=== PATIENT | male | born 1975 | race Caucasian/White ===

== ENCOUNTER 2019-09-06 12:41 | Inpatient (IN) | payer MEDICAID, SELFPAY ==
[2019-09-06] VITALS (15 sets, daily range): BP systolic 119–155; BP diastolic 75–109; PULSE 45–83; RESP 10–21; TEMP 36.1–36.8; O2SAT 91–100; BMI 26.4
--- NOTE | ~2019-09-06 | US_ITS ---
EXAMINATION: US right upper quadrant EXAM DATE: 09/07/2019 12:53 INDICATION: Abdominal pain. Elevated liver function tests. TECHNIQUE: Multiple grayscale and Doppler images of the abdomen right upper quadrant were obtained (b y a technologist who performed the scan) and subsequently reviewed. There is no prior study for jaun salgado. FINDINGS: The pancreatic head and body are normal in appearance. The pancreatic tail is not visualized. Mildl y echogenic liver parenchyma, hepatic steatosis. There are no focal liver lesions identified. Ther e is no evidence of intrahepatic biliary duct dilation. Portal venous flow was seen in the hepatoped al, normal direction and has normal Doppler waveform. No right-sided hydronephrosis. Common bile duct measures 5 mm, which is normal. The gallbladder wall is normal in thickness, with ex pected amount of distention. No sonographic evidence of pericholecystic fluid. There is no cholelit hiases. Technologist performing exam reports patient did not demonstrate sonographic Mcgraw's sign. Please note that this sign is less reliable in patients who have received pain medication. IMPRESSION: 1. Hepatic steatosis. Reviewed, dictated and finalized at location B. IMPRESSION: 1. Hepatic steatosis.
--- NOTE | ~2019-09-06 | XR_ITS ---
EXAMINATION: XR chest 2V DATE: 09/07/2019 12:31 INDICATION: Left lung nodule. TECHNIQUE: Frontal and lateral views of the chest were obtained on 3 radiographs with nipple markers. COMPARISON: Chest 2 views 09/06/2019 FINDINGS: The nodule described in the left lower lung zone on the prior radiograph correlates with th e nipple. There is no pneumonia, pleural effusion, or pneumothorax. The heart size is normal. IMPRESSION: 1. No acute cardiopulmonary disease. Reviewed, dictated and finalized at location A.
--- NOTE | ~2019-09-06 | XR_ITS ---
XR chest 2V DATE: 09/06/2019 14:20 INDICATION: Shortness of breath, cough, fever, chest pain TECHNIQUE: PA and lateral views COMPARISON: 01/08/2019 portable AP chest FINDINGS: Approximately 6 mm nodular density overlying left lower lateral lung field; recommend repea t examination with nipple markers. No pulmonary infiltrate or consolidation, pleural effusion or pulmonary vascular congestion or pneumo thorax is detected. Normal heart size. No hilar or mediastinal enlargement. Minimal levoscoliosis of the thoracic spine. IMPRESSION: 6 mm nodular density overlying the lateral left lower lung; repeat PA chest with nipple m arkers is recommended. Reviewed, dictated and finalized at location B. IMPRESSION: 6 mm nodular density overlying the lateral left lower lung; repeat PA chest with nipple markers is recommended.
--- NOTE | 2019-09-06 12:54 | ED.GENADULT ---
HPI - General Adult General Chief complaint: Chest Pain Stated complaint: FEVER, BODY ACHES Time Seen by Provider: 09/06/19 12:51 Source: patient Mode of arrival: ambulatory Limitations: no limitations History of Present Illness HPI narrative: A 44 y/o male presents to the ED with c/o chest pain. Pt states that the CP started 4 days ago after he took ICE which is a type of crystal methamphetamine. He last used ICE on 09/03/19. Pt reports painful cough, fever, and sore throat. He states the fever was 103F on 09/05/19. Pt is a alcoholic and has been drinking 2 fifths for the last 8 months. He last drank EtOH 16 hours ago. Pt adds that his mom was diagnosed with Influenza recently. complaint: Chest pain Onset (ago): day(s) (4) Location: chest Pain Consistency: constant Associated symptoms: cough, fever/chills and other (Sore throat) Related Data Allergies Allergy/AdvReac Type Severity Reaction Status Date / Time ibuprofen Allergy Unknown Anaphylaxis Verified 09/06/19 13:48 Review of Systems Review of Systems: All systems reviewed & are unremarkable except as noted in HPI and below Constitutional: Constitutional: Reports fever(s) ENT: Reports sore throat Cardiovascular: Cardiovascular: Reports chest pain Respiratory: Respiratory: Reports cough PMFSH Past Medical History Medical History (Updated 09/06/19 @ 17:41 by Kash Kolb MD) Alcohol abuse Depression Surgical History Surgical History (Updated 09/06/19 @ 12:55 by Brooklyn Sarabia) No pertinent past surgical history Family History Family History Other Diabetes mellitus Family history of arthritis Family history of malignant neoplasm Hypertension Social History Social History (Updated 09/06/19 @ 13:30 by Brookyln Sarabia) Smoking status: Heavy tobacco smoker Alcohol intake: current Alcohol use details: 2 fifths per day Substance use: current Substance use type: methamphetamine Last use: ICE crystal methamphetamine Exam Const: General: healthy appearing, no acute distress and well developed Nutritional Appearance: well nourished Orientation/consciousness: patient oriented x3 (alert) and Other orientation findings (Alert) Limitations: no limitations HENMT: Head: normocephalic and atraumatic Ears: external ears normal General nose exam: No nasal discharge present and no epistaxis Face and sinus: face symmetric Mouth: Yes lip normal, Yes tongue normal and Yes moist mucous membranes Throat: other (No exudate, no erythema) Eyes: Conjunctivae: conjunctivae normal Sclera: sclerae normal EOM: EOMs intact bilaterally Neck: Neck: full ROM, no lymphadenopathy and supple Thyroid: thyroid normal Chest: Chest palpation & inspection: no tenderness Resp: Effort & Inspection: normal respiratory effort Auscultation: clear to auscultation bilaterally, no rales, no rhonchi, no wheezes and other (breath sounds equal) Cardio: Rate: regular rate Rhythm: regular rhythm Heart sounds: no gallops and no murmurs GI: Inspection: non-distended GI Palp: No abdominal tenderness and Yes Soft to palpation Auscultation: other (bowel sounds present) : General: Yes no CVA tenderness Back/Spine/Pelvis: Back: no CVA tenderness Thoracic/Lumbar Spine: thoracic and lumbar spine normal to inspection Skin: General skin exam: normal color and no rashes or lesions noted Neuro: General: patient oriented x3 (alert), moves all extremities and no focal motor deficits Cranial nerves: Yes facial symmetry Speech: normal speech Motor exam (neuro): Motor abnormalities not present Extrem: General: normal to inspection, full ROM and no pedal edema Psych: Affect: normal affect Course Course Emergency Course: cp w/u unremarkable but will need admit for etoh wd and hyponatremia Vital Signs Vital signs: Vital Signs Temperature 36.1 C L 09/06/19 12:55 Pulse Rate 74 09/06/19 12:55 Respiratory Rate 21 H
--- NOTE | 2019-09-06 13:31 | ECG_ITS ---
Measurements Intervals [place] Rate: 53 P: 57 AL: 169 QRS: 53 QRSD: 109 T: 56 QT: 473 QTc: 446 Interpretive Statements SINUS BRADYCARDIA ST ELEVATION IN ANT/INF LEADS- PROBABLY EARLY REPOLARIZATION BORDERLINE ECG Electronically Signed On 09-06-2019 13:49:13 CDT by Regan Alexandre D.O.
[2019-09-06] MEDS: PROCHLORPERAZINE EDISYLATE 10 MG/2 ML VIAL IV PUSH (13:39)
[2019-09-06] MEDS: LACTATED RINGERS 1,000 ML 999 ML IV CONT (13:39)
[2019-09-06] MEDS: FAMOTIDINE 20 MG/2 ML VIAL 40 MG IV PUSH (13:39)
[2019-09-06] MEDS: BELLADONNA ALK/PHENOB ELIX 10 ML, MAG HYDROX/ALUMINUM HYD/SIMETH 30 ML, LIDOCAINE HCL 2... PO (13:40)
[2019-09-06 13:48] LABS: Basophils Percent Auto 0.5 % (0.2-1.2); Eosinophils Percent Auto 0.2 % (0-4.4); Hematocrit 45.8 % (42.0-52.0); Hemoglobin 15.8 g/dL (14.0-18.0); Immature Granulocyte Absolute 0.03 K/mm3 (0.00-0.031); Immature Granulocyte Percent A 0.5 % (0-0.5); Immature Platelet Fraction Pct 6.8 % (0.9-11.2); Lymphocytes Absolute Auto 0.86 K/mm3 (0.9-3.2); Lymphocytes Percent Auto 14.5 % (18.3-44.2); Mean Corpuscular HGB Conc 34.5 g/dl (32-36); Mean Corpuscular Hemoglobin 31.6 pg (26-34); Mean Corpuscular Volume 91.6 fl (80-100); Mean Platelet Volume 10.5 fl (7.4-10.4); Monocytes Absolute Auto 0.3 K/mm3 (0.1-0.6); Monocytes Percent Auto 4.5 % (2.6-8.5); Neutrophils Absolute Auto 4.7 K/mm3 (1.3-6.7); Neutrophils Percent Auto 79.8 % (45.5-73.1); Platelet Count Result 126 k/mm3 (150-375); Red Cell Distribution Width 12.8 % (11.5-14.5); White Blood Count 5.9 K/mm3 (4.5-10.0)
[2019-09-06 13:57] LABS: Ethanol < 10 mg/dL (<10)
[2019-09-06 13:58] LABS: Alanine Aminotransferase 360 U/L (4-50); Albumin Level 4.4 g/dL (3.5-5.1); Alkaline Phosphatase 67 U/L (38-126); Bilirubin,Total 1.8 mg/dL (0.2-1.3); Blood Urea Nitrogen 11 mg/dL (9-20); Calcium 9.7 mg/dL (8.4-10.2); Carbon Dioxide 27 mmol/L (22-30); Chloride 95 mmol/L (98-107); Estimated CRCL calculation 125 ml/min; Estimated Glomerular Filt Rate > 60; Glucose 141 mg/dL (75-110); Lipase 79 U/L (23-300); Potassium 3.6 mmol/L (3.4-5.0); Sodium 129 mmol/L (137-145)
[2019-09-06 14:09] LABS: Troponin I < 0.012 ng/mL (0.000-0.034)
[2019-09-06 14:16] LABS: Aspartate Amino Transferase 850 U/L (17-59)
[2019-09-06] MEDS: SODIUM CHLORIDE 0.9% IV 1,000 ML 999 ML IV CONT (14:40)
[2019-09-06] MEDS: THIAMINE HCL 200 MG/2 ML VIAL 100 MG IV PUSH (14:40)
[2019-09-06 15:38] LABS: Amphetamine Screen Urine Negative (Negative); Barbiturate Screen Urine Negative (Negative); Benzodiazepines Screen Urine Negative (Negative); Cannabinoid Screen Urine Negative (Negative); Cocaine Screen Urine Negative (Negative); Methadone Screen Urine Negative (Negative); Opiate Screen Urine Negative (Negative); Phencyclidine Screen Urine Negative (Negative)
[2019-09-06 17:53] LABS: Troponin I < 0.012 ng/mL (0.000-0.034)
[2019-09-06] MEDS: CHLORDIAZEPOXIDE 25 MG CAPSULE PO (18:12)
--- NOTE | 2019-09-06 19:58 | PC.NURSE ---
This patient, Raul Martin, was admitted to IMU Room 205-01 on 09/06/19 at 1945. Patient/family oriented to hospital policies and general routines including ID bracelet, bed and alarms, visiting hours, pain management, procedures, bathroom and other care routines, personal items, smoking policy, room service/diet, and visiting hours. Valuables list has been completed. Information on how to activate the Rapid Response Team has been discussed. Patient/Family are encouraged to report perceived risks to care and to ask questions if they do not understand what they are told or what they should do.
[2019-09-06] MEDS: LACTATED RINGERS 1,000 ML 125 ML IV CONT (21:05)
[2019-09-06 21:59] LABS: Glucose Point of Care 181 (65-105)
[2019-09-06] MEDS: NICOTINE (*PBKC) 21 MG PATCH 1 PATCH TRANSDERM (23:08)
[2019-09-06] MEDS: CHLORDIAZEPOXIDE 25 MG CAPSULE 50 MG PO (23:09)
[2019-09-07] VITALS (16 sets, daily range): BP systolic 122–144; BP diastolic 73–94; PULSE 64–98; RESP 18–22; TEMP 36.4–36.8; O2SAT 94–98; BMI 26.4
[2019-09-07] MEDS: SODIUM CHLORIDE 0.9% IV 1,000 ML 999 ML IV CONT (01:34)
--- NOTE | 2019-09-07 01:39 | PM.IMHP ---
H&P: HPI History of Present Illness Chief complaint: Chest pain and shortness of breath Narrative: Date and time of patient contact: 09/06/2019 at 11:20 p.m. Raul Martin is a 44 year old male with a past medical history of depression and alcoholism who presented to the ER with sudden onset of chest pain and shortness of breath. The patient reports that he has had multiple contacts that have been ill with upper respiratory symptoms. His mother was recently diagnosed with influenza. The patient's influenza swab in the ER was negative. He thought that he had the flu. He has been having nonproductive cough, fever up to 103? and sore throat for about a week. His also had a burning substernal chest pain that radiates up into his neck. The chest pain is so seeded by a sour taste in his mouth and occasional nausea. He did have a couple of episodes of vomiting on the that were nonbloody without evidence of coffee-ground emesis. He reports some reproducible tenderness in his epigastric area. He has been having epigastric discomfort on and off for a while. However his developed the chest pain that radiates up into his throat for the last 4 days. The pain usually last about 40 minutes before resolved. It waxes and wanes he does note some change in symptoms with eating. He received a GI cocktail in the ER which relieved his discomfort. He reports that his stools have been more pale than usual. He denies any hematochezia or melena. He reports that he uses ICE (crystal methamphetamines). He last use on 09/03/2019. He has been using methamphetamines since December. He has also been drinking 2/5 of vodka a day for the last 8 months. He does get irritable when he does not drink alcohol and thinks he may have had a seizure in the past. He still is living in his own home but is selling off his material possessions in order to get money to continue to drink alcohol in use drugs. He has tried to stop using the drugs multiple times. He wants to stop drinking but has been unsuccessful in efforts to cut back his alcohol use. He denies any homicidal or suicidal ideation. He states that his depression is usually fairly well controlled but any time he tries to stop taking the methamphetamines he feels run down and fatigued. He thinks that some of his sore throat and cough may be due to how he snorts the methamphetamines. The patient denies using ibuprofen or naproxen to treat his pain because he has a history of anaphylaxis. He has been using some Tylenol for his abdominal discomfort without relief in symptoms. Review of Systems Review of Systems: Narrative: Except as documented in the HPI, all other systems were reviewed and are negative. [facility] Past Medical History Medical History (Updated 09/07/19 @ 02:49 by Mariza Maravilla DO) Alcohol abuse Depression Surgical History Surgical History (Updated 09/07/19 @ 02:49 by Mariza Maravilla DO) History of tonsillectomy and adenoidectomy Injury of left forearm Repair of muscles, tendons, and ligaments in the left forearm due to trauma Right arm fracture Right humerus fracture with ORIF 2002 Family History Family History (Updated 09/07/19 @ 02:51 by Mariza Maravilla DO) Father , Age 68 Pancreatic cancer Hypertension Mother Family history of arthritis Sibling Alcoholism in remission Brother who is 42 years old Other Family history of malignant neoplasm Social History Social History (Updated 09/07/19 @ 02:54 by Mariza Maravilla DO) Social History: Primary care physician: Dr. Davi Ji Code status: Full code Smoking packs per day: 2 Smoking cigarettes per day: 40.0 Years smoked: 20 Smoking pack-years: 40.00 Smoking status: Current every day smoker Tobacco type: cigarettes Additional smoking assessment comments: 1-2 packs per day since he was in his early 20s. Alcohol intake: current Drinks per week: 28 Alcohol use details:
[2019-09-07] MEDS: IPRATROPIUM BR 0.02% INH SOLN 0.5 MG/2.5 ML VIAL INHALATION (01:40)
[2019-09-07 04:44] LABS: Hematocrit 43.7 % (42.0-52.0); Immature Platelet Fraction Pct 6.3 % (0.9-11.2); Mean Corpuscular HGB Conc 34.3 g/dl (32-36); Mean Corpuscular Hemoglobin 31.8 pg (26-34); Mean Corpuscular Volume 92.6 fl (80-100); Mean Platelet Volume 10.7 fl (7.4-10.4); Platelet Count Result 125 k/mm3 (150-375); Red Blood Count 4.72 M/mm3 (4.6-6.20); Red Cell Distribution Width 12.9 % (11.5-14.5); White Blood Count 4.7 K/mm3 (4.5-10.0)
[2019-09-07 04:51] LABS: INR 1.3; Prothrombin Time 15.5 Seconds (11.1-14.7)
[2019-09-07 04:52] LABS: Partial Thromboplastin Time 29.1 SECONDS (22.3-36.8)
[2019-09-07 04:54] LABS: Hemoglobin A1C 5.7 % (<5.7)
[2019-09-07 05:09] LABS: Albumin Level 3.6 g/dL (3.5-5.1); Alkaline Phosphatase 61 U/L (38-126); Bilirubin,Total 1.6 mg/dL (0.2-1.3); Blood Urea Nitrogen 9 mg/dL (9-20); Calcium 8.8 mg/dL (8.4-10.2); Carbon Dioxide 26 mmol/L (22-30); Chloride 105 mmol/L (98-107); Estimated CRCL calculation 99 ml/min; Estimated Glomerular Filt Rate > 60; Glucose 84 mg/dL (75-110); Magnesium 1.6 mg/dL (1.6-2.3); Phosphorus 3.8 mg/dL (2.5-4.5); Sodium 136 mmol/L (137-145)
[2019-09-07 05:59] LABS: Alanine Aminotransferase 863 U/L (4-50)
[2019-09-07 06:03] LABS: Aspartate Amino Transferase 1890 U/L (17-59)
[2019-09-07] MEDS: LACTATED RINGERS 1,000 ML 125 ML IV CONT ×3 (06:09→23:18)
[2019-09-07] MEDS: CHLORDIAZEPOXIDE 25 MG CAPSULE 50 MG PO ×4 (06:11→23:18)
[2019-09-07] MEDS: SUCRALFATE SUSP 100 MG/ML 10 ML UDC 1000 MG PO ×4 (06:11→20:00)
[2019-09-07 09:42] LABS: Hepatitis B Surface Antigen Negative (Negative)
[2019-09-07 09:48] LABS: HAV RESULT Negative (Negative); Hepatitis B Core IgM Result Negative (Negative)
[2019-09-07 09:59] LABS: HIV 1/2 Ab P24 Ag Result Negative (Negative); Hepatitis C Virus Antibody Negative (Negative)
[2019-09-07] MEDS: MULTIVITAMINS THERAPEUTIC TAB (*BKC) 1 TABLET PO (10:49)
[2019-09-07] MEDS: NICOTINE (*PBKC) 21 MG PATCH 1 PATCH TRANSDERM (10:49)
[2019-09-07] MEDS: THIAMINE HCL 100 MG TABLET PO (10:50)
[2019-09-07] MEDS: FAMOTIDINE 20 MG TABLET PO ×2 (10:50→20:00)
[2019-09-07] MEDS: SERTRALINE HCL 50 MG TABLET 100 MG PO (10:50)
--- NOTE | 2019-09-07 10:59 | PM.IMPN ---
Progress Note: A&P Assessment and Plan (1) Alcohol withdrawal: Code(s): F10.239 - Alcohol dependence with withdrawal, unspecified Status: Acute Assessment and Plan: The patient will be monitor for symptoms of alcohol withdrawal. His CIWA score when he arrived to the unit was 8. He had received 25 mg of Librium in the ER. Will continue Librium to 50 mg p.o. every 6 hours. Will check CIWA scores every 4 hours and adjust medications as needed. Ativan 1 mg every 4 hours as needed for CIWA scores greater than 7 Monitor closely (2) Hyponatremia: Code(s): E87.1 - Hypo-osmolality and hyponatremia Status: Acute Assessment and Plan: Na 136 today; improved. Likely due to alcohol abuse. Will repeat BMP in a.m. Trend (3) Alcoholic hepatitis: Code(s): K70.10 - Alcoholic hepatitis without ascites Status: Acute Assessment and Plan: With elevated LFTs; increased today. Hepatitis panel/HIV serology negative Will repeat LFTs in a.m. RUQ US today Patient was educated on alcohol cessation again GI has been consulted and appreciate recommendations (4) Chest pain due to GERD: Code(s): R07.9 - Chest pain, unspecified; K21.9 - Gastro-esophageal reflux disease without esophagitis Status: Acute Assessment and Plan: Patient received PPI therapy in the ER. His symptoms improved significantly with a GI cocktail. Will continue GI prophylaxis with Pepcid b.i.d. Will continue Carafate a.c. and HS. (5) Pulmonary nodule: Code(s): R91.1 - Solitary pulmonary nodule Status: Acute Assessment and Plan: 6mm nodule; Noted on CXR Will repeat CXR Likely follow up with PCP after discharge Subjective Date/time seen: 09/07/19 10:59 Interval history: Patient is a 44 yo M with history of depression, alcoholism, and methamphetamine substance abuse who is here for treatment for alcohol hepatitis and possible alcohol withdrawal. Patient states his presenting chest pain has improved; he notes this was more epigastric in nature and wrapped around lower part of chest yesterday. He tolerated his breakfast okay. He has noted sweats. He has been having some SOB as well. He notes dark urine. He has no other complaints at this moment. He does express concerns over his substance abuse and alcohol abuse; he is worried about possible cirrhosis as he has had a friend pass away from this. Denies f/c, headaches, dizziness, lightheadedness, changes in v/h, cp/palpitations, n/v/d/c, dysphagia, dysuria, hematuria, cloudy urine. Review of Systems Review of Systems: All systems reviewed & are unremarkable except as noted in HPI and below Exam Narrative: Exam Narrative: Patient is lying supine in bed at time of visit; initally sleeping, but easily arousable to verbal/light stimuli Const: General: cooperative, comfortable, no acute distress, well developed, alert, awake and tired appearing Nutritional Appearance: well nourished Orientation/consciousness: patient oriented x3 HENMT: Head: normocephalic and atraumatic Ears: external ears normal General nose exam: Normal nares present Face and sinus: face symmetric Mouth: Yes lip normal and Yes moist mucous membranes Teeth and gingiva: fair dentition Throat: posterior oropharynx normal and uvula midline Eyes: General: appearance normal, both eyes and all related structures Sclera: sclerae normal Pupils: Equal, round and reactive pupils present EOM: EOMs intact bilaterally Neck: Neck: trachea midline, supple and no JVD Resp: Effort & Inspection: normal respiratory effort Auscultation: clear to auscultation bilaterally Cardio: Rate: regular rate Rhythm: regular rhythm Heart sounds: no murmurs GI: Inspection: non-distended GI P
[2019-09-07] MEDS: LORAZEPAM INJ 2 MG/ML VIAL 1 MG IV PUSH ×2 (14:58→20:00)
--- NOTE | 2019-09-07 16:50 | WPDANESEPP ---
Anes - Eval Pre Procedure Procedure: Operation Date: 09/08/19 12:45 Proposed Procedures p Esophagogastroduodenoscopy - Robert Fajardo MD Date/Time: 09/07/19 16:50 Pre Op Diagnosis: Chest pain and shortness of breath Patient Data Age: 44 Gender: M Height: 5 ft 11 in Weight: 86.1 kg Last Vital Signs Temp 97.6 F 09/07/19 16:00 Pulse 81 09/07/19 16:00 Resp 22 H 09/07/19 16:00 BP 144/94 H 09/07/19 16:00 Pulse Ox 97 09/07/19 16:00 Allergies Allergy/AdvReac Type Severity Reaction Status Date / Time ibuprofen Allergy Unknown Anaphylaxis Verified 09/06/19 13:48 Home Medications Medication Instructions Recorded Confirmed Type sertraline [Zoloft] 100 mg PO DAILY 09/06/19 09/06/19 History Laboratory Tests 09/06/19 09/06/19 09/07/19 17:24 21:56 04:14 WBC 4.7 K/mm3 K/mm3 (4.5-10.0) RBC 4.72 M/mm3 M/mm3 (4.6-6.20) Hgb 15.0 g/dL g/dL (14.0-18.0) Hct 43.7 % % (42.0-52.0) MCV 92.6 fl fl (80-100) MCH 31.8 pg pg (26-34) MCHC 34.3 g/dl g/dl (32-36) RDW 12.9 % % (11.5-14.5) Plt Count 125 k/mm3 L k/mm3 (150-375) MPV 10.7 fl H fl (7.4-10.4) % Immature Plt Fraction 6.3 % % (0.9-11.2) PT INR APTT Sodium Potassium Chloride Carbon Dioxide BUN Creatinine Estim Creat Clear Calc Estimated GFR Glucose POC Capillary Glucose 181 mg/dl H mg/dl (65-105) Hemoglobin A1c Calcium Phosphorus Magnesium Total Bilirubin AST ALT Alkaline Phosphatase Troponin I < 0.012 ng/mL ng/mL (0.000-0.034) Total Protein Albumin Hepatitis A IgM Ab Hep Bs Antigen Hep B Core IgM Ab Hepatitis C Ab Screen HIV 1&2 Ab/P24 Ag 4thGn 09/07/19 09/07/19 09/07/19 04:14 04:14 04:14 WBC RBC Hgb Hct MCV MCH MCHC RDW Plt Count MPV % Immature Plt Fraction PT 15.5 Seconds H Seconds (11.1-14.7) INR 1.3 APTT 29.1 SECONDS SECONDS (22.3-36.8) Sodium 136 mmol/L L mmol/L (137-145) Potassium 4.0 mmol/L mmol/L (3.4-5.0) Chloride 105 mmol/L mmol/L (98-107) Carbon Dioxide 26 mmol/L mmol/L (22-30) BUN 9 mg/dL mg/dL (9-20) Creatinine 0.90 mg/dL mg/dL (0.7-1.3) Estim Creat Clear Calc 99 ml/min ml/min Estimated GFR > 60 (59 - ) Glucose 84 mg/dL mg/dL (75-110) POC Capillary Glucose Hemoglobin A1c 5.7 % % (<5.7) Calcium 8.8 mg/dL mg/dL (8.4-10.2) Phosphorus 3.8 mg/dL mg/dL (2.5-4.5) Magnesium 1.6 mg/dL mg/dL (1.6-2.3) Total Bilirubin 1.6 mg/dL H mg/dL (0.2-1.3) AST 1890 U/L H U/L (17-59) ALT 863 U/L H U/L (4-50) Alkaline Phosphatase 61 U/L U/L (38-126) Troponin I Total Protein 6.0 g/dL L g/dL (6.3-8.2) Albumin 3.6 g/dL g/dL (3.5-5.1) Hepatitis A IgM Ab Hep Bs Antigen Hep B Core IgM Ab Hepatitis C Ab Screen HIV 1&2 Ab/P24 Ag 4thGn 09/07/19 08:14 WBC RBC Hgb Hct MCV MCH MCHC RDW Plt Count MPV % Immature Plt Fraction PT INR APTT Sodium Potassium Chloride Carbon Dioxide BUN Creatinine Estim Creat Clear Calc Estimated GFR Glucose POC Capi
--- NOTE | 2019-09-07 16:53 | P.PNAN_ITS ---
Anes - Eval Pre Procedure Procedure: Operation Date: 09/08/19 12:45 Proposed Procedures p Esophagogastroduodenoscopy - Robert Fajardo MD Date/Time: 09/07/19 16:53 Pre Op Diagnosis: Chest pain and shortness of breath Patient Data Age: 44 Gender: M Height: 5 ft 11 in Weight: 86.1 kg Last Vital Signs Temp 97.6 F 09/07/19 16:00 Pulse 81 09/07/19 16:00 Resp 22 H 09/07/19 16:00 BP 144/94 H 09/07/19 16:00 Pulse Ox 97 09/07/19 16:00 Allergies Allergy/AdvReac Type Severity Reaction Status Date / Time ibuprofen Allergy Unknown Anaphylaxis Verified 09/06/19 13:48 Home Medications Medication Instructions Recorded Confirmed Type sertraline [Zoloft] 100 mg PO DAILY 09/06/19 09/06/19 History Laboratory Tests 09/06/19 09/06/19 09/07/19 17:24 21:56 04:14 WBC 4.7 K/mm3 K/mm3 (4.5-10.0) RBC 4.72 M/mm3 M/mm3 (4.6-6.20) Hgb 15.0 g/dL g/dL (14.0-18.0) Hct 43.7 % % (42.0-52.0) MCV 92.6 fl fl (80-100) MCH 31.8 pg pg (26-34) MCHC 34.3 g/dl g/dl (32-36) RDW 12.9 % % (11.5-14.5) Plt Count 125 k/mm3 L k/mm3 (150-375) MPV 10.7 fl H fl (7.4-10.4) % Immature Plt Fraction 6.3 % % (0.9-11.2) PT INR APTT Sodium Potassium Chloride Carbon Dioxide BUN Creatinine Estim Creat Clear Calc Estimated GFR Glucose POC Capillary Glucose 181 mg/dl H mg/dl (65-105) Hemoglobin A1c Calcium Phosphorus Magnesium Total Bilirubin AST ALT Alkaline Phosphatase Troponin I < 0.012 ng/mL ng/mL (0.000-0.034) Total Protein Albumin Hepatitis A IgM Ab Hep Bs Antigen Hep B Core IgM Ab Hepatitis C Ab Screen HIV 1&2 Ab/P24 Ag 4thGn 09/07/19 09/07/19 09/07/19 04:14 04:14 04:14 WBC RBC Hgb Hct MCV MCH MCHC RDW Plt Count MPV % Immature Plt Fraction PT 15.5 Seconds H Seconds (11.1-14.7) INR 1.3
--- NOTE | 2019-09-07 18:05 | WPDGICN ---
Assessment and Plan Assessment and plan (1) Alcoholic hepatitis: Qualifiers: Ascites presence: unspecified Qualified Code(s): K70.10 - Alcoholic hepatitis without ascites Code(s): K70.10 - Alcoholic hepatitis without ascites Status: Acute Assessment and Plan: supportive care, high risk of withdrawal, ciwa protocol continue with thiamine, folice, mvi, etc monitor liver enzymes hepatitis panel and hiv negative (2) Nausea and vomiting in adult: Code(s): R11.2 - Nausea with vomiting, unspecified Status: Acute Assessment and Plan: will proceed with egd tomorrow, he also had chest pain (3) Alcohol withdrawal: Qualifiers: Complication of substance-induced condition: uncomplicated Qualified Code(s): F10.230 - Alcohol dependence with withdrawal, uncomplicated Code(s): F10.239 - Alcohol dependence with withdrawal, unspecified Status: Acute (4) Thrombocytopenia: Code(s): D69.6 - Thrombocytopenia, unspecified Status: Acute Assessment and Plan: probably from etoh use, he also has liver disease (5) Flu-like symptoms: Code(s): R68.89 - Other general symptoms and signs Status: Acute (6) Non-cardiac chest pain: Code(s): R07.89 - Other chest pain Status: Acute GI Consult Note Consult date/time: 09/07/19 18:05 Reason for consult: alcoholic hepatitis HPI: Raul Martin is a 44 year old male with past medical history of depression and alcoholism who came to ER with new onset of chest pain and shortness of breath along with chest congestion. His mother was sick recently with URI and he thought that could have the flu. Blood work with transaminases 1800 (AST/ALT>1), bili 1.6, platelets 120. He has uses ICE (crystal methamphetamines) and also drinking heavily since last December, up to 2/5 of vodka a day (previously he attended AA but relapsed). CXR normal, ultrasound showed fatty liver, normal biliary duct. He also burning substernal chest pain that radiates up into his neck and few times nausea with vomiting with epigastric pain. He received a GI cocktail in the ER which relieved his discomfort. Review of Systems Constitutional: Constitutional: Reports chills, Reports fever(s), Reports headache(s) and Reports weakness Eyes: Eyes: Denies blurry vision ENT: Reports Normal hearing present, Denies headache(s) and Denies neck pain Cardiovascular: Cardiovascular: Denies chest pain and Denies dyspnea Respiratory: Respiratory: Denies dyspnea Gastrointestinal: Gastrointestinal: Reports no additional gastrointestinal complaints Genitourinary: Genitourinary: Denies dysuria Musculoskeletal: Musculoskeletal: Denies neck pain Integumentary/Breasts: Skin/Breast: Denies dry skin Neurologic: Reports Normal hearing present, Denies headache(s) and Denies weakness Psychiatric: Psychiatric: Reports anxiety and Reports depression Endocrine: Endocrine: Denies change in body appearance Hematologic/Lymphatic: Hematologic/Lymphatic: Denies easy bleeding Allergic/Immunologic: Allergic/Immunologic: Denies urticaria PMFSH Past Medical History Medical History (Updated 09/07/19 @ 18:12 by Robert Fajardo MD) Alcohol abuse Depression Drug abuse Flu-like symptoms Methamphetamine abuse Nausea and vomiting in adult Non-cardiac chest pain Seizures Likely from withdrawl Smoker Thrombocytopenia Surgical History Surgical History History of tonsillectomy and adenoidectomy Injury of left forearm Repair of muscles, tendons, and ligaments in the left forearm due to trauma Right arm fracture Right humerus fracture with ORIF 2002 Family History Family History Father , Age 68 Pancreatic cancer Hypertension Mother Family history of arthritis Sibling Alcoholism in remission Brother
[2019-09-08] VITALS (18 sets, daily range): BP systolic 83–138; BP diastolic 46–85; PULSE 69–103; RESP 15–22; TEMP 36.6–37; O2SAT 93–98
[2019-09-08] MEDS: LORAZEPAM INJ 2 MG/ML VIAL 1 MG IV PUSH ×2 (02:12→19:46)
[2019-09-08 05:11] LABS: Hematocrit 43.2 % (42.0-52.0); Hemoglobin 14.9 g/dL (14.0-18.0); Immature Platelet Fraction Pct 7.4 % (0.9-11.2); Mean Corpuscular HGB Conc 34.5 g/dl (32-36); Mean Corpuscular Hemoglobin 31.8 pg (26-34); Mean Corpuscular Volume 92.1 fl (80-100); Mean Platelet Volume 10.5 fl (7.4-10.4); Platelet Count Result 119 k/mm3 (150-375); Red Blood Count 4.69 M/mm3 (4.6-6.20); Red Cell Distribution Width 13.1 % (11.5-14.5); White Blood Count 5.3 K/mm3 (4.5-10.0)
[2019-09-08 05:19] LABS: INR 1.2; Prothrombin Time 15.2 Seconds (11.1-14.7)
[2019-09-08 05:28] LABS: Albumin Level 3.4 g/dL (3.5-5.1); Alkaline Phosphatase 73 U/L (38-126); Blood Urea Nitrogen 10 mg/dL (9-20); Calcium 8.8 mg/dL (8.4-10.2); Carbon Dioxide 27 mmol/L (22-30); Chloride 102 mmol/L (98-107); Estimated CRCL calculation 110 ml/min; Estimated Glomerular Filt Rate > 60; Glucose 98 mg/dL (75-110); Magnesium 1.7 mg/dL (1.6-2.3); Potassium 3.8 mmol/L (3.4-5.0); Sodium 133 mmol/L (137-145)
[2019-09-08 05:51] LABS: Alanine Aminotransferase 1589 U/L (4-50)
[2019-09-08] MEDS: CHLORDIAZEPOXIDE 25 MG CAPSULE 50 MG PO (05:59)
[2019-09-08] MEDS: SUCRALFATE SUSP 100 MG/ML 10 ML UDC 1000 MG PO ×3 (06:00→19:40)
[2019-09-08 06:53] LABS: Aspartate Amino Transferase 2357 U/L (17-59)
[2019-09-08] MEDS: NICOTINE (*PBKC) 21 MG PATCH 1 PATCH TRANSDERM (08:21)
[2019-09-08] MEDS: LACTATED RINGERS 1,000 ML 125 ML IV CONT ×2 (08:21→19:39)
--- NOTE | 2019-09-08 09:26 | PM.IMPN ---
Progress Note: A&P Assessment and Plan (1) Alcohol withdrawal: Qualifiers: Complication of substance-induced condition: uncomplicated Qualified Code(s): F10.230 - Alcohol dependence with withdrawal, uncomplicated Code(s): F10.239 - Alcohol dependence with withdrawal, unspecified Status: Acute Assessment and Plan: The patient will be monitored for symptoms of alcohol withdrawal. His CIWA score when he arrived to the unit was 8. He had received 25 mg of Librium in the ER; this was increased to 50 mg scheduled Q6 hours. CIWA this morning was 2 Will continue Librium to 50 mg p.o. every 6 hours. Will check CIWA scores every 4 hours and adjust medications as needed. Ativan 1 mg every 4 hours as needed for CIWA scores greater than 7 Monitor closely (2) Hyponatremia: Code(s): E87.1 - Hypo-osmolality and hyponatremia Status: Acute Assessment and Plan: Na 133 today; lowered. Likely due to alcohol abuse. Will repeat BMP in a.m. Trend (3) Alcoholic hepatitis: Qualifiers: Ascites presence: unspecified Qualified Code(s): K70.10 - Alcoholic hepatitis without ascites Code(s): K70.10 - Alcoholic hepatitis without ascites Status: Acute Assessment and Plan: With elevated LFTs; increased again today; AST 2357, ALT 1589. Hepatitis panel/HIV serology negative. RUQ US showed hepatic steatosis. Will repeat LFTs in a.m. He will be having EGD per Dr. Cook this morning GI has been consulted and appreciate recommendations (4) Chest pain due to GERD: Code(s): R07.9 - Chest pain, unspecified; K21.9 - Gastro-esophageal reflux disease without esophagitis Status: Acute Assessment and Plan: Patient received PPI therapy in the ER. His symptoms improved significantly with a GI cocktail. Will continue GI prophylaxis with Pepcid b.i.d. Will continue Carafate a.c. and HS. (5) Pulmonary nodule: Code(s): R91.1 - Solitary pulmonary nodule Status: Acute Assessment and Plan: 6mm nodule; Noted on CXR; Repeat showed that this was his nipple; no actue cardiopulmonary disease No need for further monitoring Subjective Date/time seen: 09/08/19 09:26 Interval history: Patient is a 44 yo M with history of depression, alcoholism, and methamphetamine substance abuse who is here for treatment for alcohol hepatitis and possible alcohol withdrawal. Patient states he is feeling better today; just mainly tired. His abdominal pain has improved significantly; his chest pain/GERD has resolved. He is tolerating PO okay; NPO for EGD today though. He has no other complaints at this moment. Denies f/c/ns, headaches, dizziness, lightheadedness, changes in v/h, cp/palpitations, sob, n/v/d/c, dysphagia, melena, brbpr, dysuria, hematuria, cloudy urine, calf pain/swelling. Review of Systems Review of Systems: All systems reviewed & are unremarkable except as noted in HPI and below Exam Narrative: Exam Narrative: Patient is lying supine in bed at time of visit; initally sleeping, but easily arousable to verbal/light stimuli Const: General: cooperative, comfortable, no acute distress, well developed, alert, awake and tired appearing Nutritional Appearance: well nourished Orientation/consciousness: patient oriented x3 HENMT: Head: normocephalic and atraumatic Ears: external ears normal General nose exam: Normal nares present Face and sinus: face symmetric Mouth: Yes lip normal and Yes moist mucous membranes Teeth and gingiva: fair dentition Throat: posterior oropharynx normal and uvula midline Eyes: General: appearance normal, both eyes and all related structures Sclera: sclerae normal Pupils: Equal, round and reactive pupils present EOM: EOMs intact bilaterall
[2019-09-08] MEDS: LACTATED RINGERS 1,000 ML 150 ML IV CONT (11:36)
--- NOTE | 2019-09-08 12:28 | WPDANESEFPP ---
Anes - Eval Final PreProcedure Day of Procedure 09/08/19 12:28 Patient weight: overweight Heart: regular rate and rhythm Lungs: clear to auscultation and normal air movement Airway: Mallampati scale class II Neurological: alert and oriented Last oral intake: >/= 8 hours ASA classification: IV Emergent: no Anesthetic plan: proceed Anesthesia type and monitoring: general GIVS and standard monitoring Informed Consent: The patient's anesthetic plan and its attendant risks and benefits were discussed with the patient/family/POA. Questions were solicited and answers provided to the satisfaction of the patient/family/POA.
[2019-09-08] MEDS: SERTRALINE HCL 50 MG TABLET 100 MG PO (17:06)
[2019-09-08] MEDS: THIAMINE HCL 100 MG TABLET PO (17:06)
[2019-09-08] MEDS: MULTIVITAMINS THERAPEUTIC TAB (*BKC) 1 TABLET PO (17:06)
[2019-09-08] MEDS: CHLORDIAZEPOXIDE 25 MG CAPSULE PO ×2 (17:09→23:27)
--- NOTE | 2019-09-08 19:33 | PC.NURSE ---
Patient off floor to EGD. Returned to floor without issue. Tolerated lunch and dinner.
[2019-09-08] MEDS: PANTOPRAZOLE 40 MG TABLET PO (19:42)
[2019-09-09] VITALS (10 sets, daily range): BP systolic 110–134; BP diastolic 67–83; PULSE 62–77; RESP 16–18; TEMP 36.2–37.6; O2SAT 93–96
[2019-09-09] MEDS: LORAZEPAM INJ 2 MG/ML VIAL 1 MG IV PUSH ×2 (01:08→23:18)
[2019-09-09] MEDS: LORAZEPAM INJ 2 MG/ML VIAL IV PUSH (03:18)
[2019-09-09] MEDS: LACTATED RINGERS 1,000 ML 125 ML IV CONT ×2 (03:18→11:12)
[2019-09-09] MEDS: CHLORDIAZEPOXIDE 25 MG CAPSULE PO ×3 (05:07→20:28)
[2019-09-09] MEDS: SUCRALFATE SUSP 100 MG/ML 10 ML UDC 1000 MG PO ×4 (05:07→20:28)
[2019-09-09 05:40] LABS: Albumin Level 3.4 g/dL (3.5-5.1); Alkaline Phosphatase 80 U/L (38-126); Bilirubin,Total 0.6 mg/dL (0.2-1.3); Blood Urea Nitrogen 12 mg/dL (9-20); Calcium 8.9 mg/dL (8.4-10.2); Carbon Dioxide 28 mmol/L (22-30); Chloride 102 mmol/L (98-107); Estimated CRCL calculation 99 ml/min; Estimated Glomerular Filt Rate > 60; Glucose 124 mg/dL (75-110); Magnesium 1.7 mg/dL (1.6-2.3); Potassium 4.2 mmol/L (3.4-5.0); Sodium 134 mmol/L (137-145)
[2019-09-09 06:07] LABS: Alanine Aminotransferase 1563 U/L (4-50)
[2019-09-09 07:54] LABS: Aspartate Amino Transferase 1428 U/L (17-59)
--- NOTE | 2019-09-09 08:00 | WPDANESPN ---
Anes - Prog Note Post-Op Date/Time: 09/09/19 08:00 Cardiovascular status: normal Respiratory status: normal Airway patency: baseline Mental status: baseline Post-Op hydration status: normal Vital Signs: Last Vital Signs Temp 36.7 C 09/09/19 04:00 Pulse 67 09/09/19 06:00 Resp 16 09/09/19 04:00 BP 134/83 09/09/19 04:00 Pulse Ox 96 09/09/19 04:00 I/O: Intake & Output 09/08/19 09/09/19 09/09/19 23:59 07:59 15:59 Intake Total 2340 2525 Output Total 1800 1350 Balance 540 1175 Laboratory Tests 09/08/19 04:42 09/09/19 04:16 09/09/19 04:16 Sodium 134 L Potassium 4.2 Chloride 102 Carbon Dioxide 28 BUN 12 Creatinine 0.90 Estim Creat Clear Calc 99 Estimated GFR > 60 Glucose 124 H Calcium 8.9 Magnesium 1.7 Total Bilirubin 0.6 AST 1428 H ALT 1563 H Alkaline Phosphatase 80 Total Protein 6.0 L Albumin 3.4 L Post-procedural complaints: none Patient Feedback: Patient satisfied with anesthetic care.
--- NOTE | 2019-09-09 08:23 | PM.IMPN ---
Progress Note: A&P Assessment and Plan (1) Alcohol withdrawal: Qualifiers: Complication of substance-induced condition: uncomplicated Qualified Code(s): F10.230 - Alcohol dependence with withdrawal, uncomplicated Code(s): F10.239 - Alcohol dependence with withdrawal, unspecified Status: Acute Assessment and Plan: The patient will be monitored for symptoms of alcohol withdrawal. His CIWA score when he arrived to the unit was 8. He had received 25 mg of Librium in the ER; this was increased to 50 mg scheduled Q6 hours. CIWA overnight was 22 and was given 2mg Ativan; today patient is not confused and feeling better. Will continue Librium to 25 mg p.o. every 6 hours. Will check CIWA scores every 4 hours and adjust medications as needed. Ativan 1 mg every 4 hours as needed for CIWA scores greater than 7 Monitor closely Consider transfer to floor Consider tapering frequency tomorrow (2) Hyponatremia: Code(s): E87.1 - Hypo-osmolality and hyponatremia Status: Acute Assessment and Plan: Na 134 today; stable. Likely due to alcohol abuse. Will repeat BMP in a.m. Trend (3) Alcoholic hepatitis: Qualifiers: Ascites presence: unspecified Qualified Code(s): K70.10 - Alcoholic hepatitis without ascites Code(s): K70.10 - Alcoholic hepatitis without ascites Status: Acute Assessment and Plan: With elevated LFTs; AST 1428, ALT 1563. Hepatitis panel/HIV serology negative. RUQ US showed hepatic steatosis. Will repeat LFTs in a.m. He will be having EGD per Dr. Cook this morning GI has been consulted and appreciate recommendations (4) Chest pain due to GERD: Code(s): R07.9 - Chest pain, unspecified; K21.9 - Gastro-esophageal reflux disease without esophagitis Status: Acute Assessment and Plan: Patient received PPI therapy in the ER. His symptoms improved significantly with a GI cocktail. Will continue Pantoprazole BID Will continue Carafate a.c. and HS. (5) Pulmonary nodule: Code(s): R91.1 - Solitary pulmonary nodule Status: Resolved Assessment and Plan: 6mm nodule; Noted on CXR; Repeat showed that this was his nipple; no actue cardiopulmonary disease No need for further monitoring Subjective Date/time seen: 09/09/19 08:23 Interval history: Patient is a 44 yo M with history of depression, alcoholism, and methamphetamine substance abuse who is here for treatment for alcohol hepatitis and possible alcohol withdrawal. Patient states he is feeling okay today; just mainly tired. He had a rough night last night; stating he was restless and confused; he since has improved. His abdominal pain has resolved today; his chest pain/GERD has resolved. He is tolerating PO okay. He has no other complaints at this moment. Denies f/c, headaches, dizziness, lightheadedness, changes in v/h, cp/palpitations, sob, n/v/d/c, abd pain, dysuria, calf pain/swelling. Review of Systems Review of Systems: All systems reviewed & are unremarkable except as noted in HPI and below Exam Narrative: Exam Narrative: Patient is lying supine in bed at time of visit; initally sleeping, but easily arousable to verbal/light stimuli Const: General: cooperative, comfortable, no acute distress, well developed, alert, awake and tired appearing Nutritional Appearance: well nourished Orientation/consciousness: patient oriented x3 HENMT: Head: normocephalic and atraumatic General nose exam: Normal nares present Face and sinus: face symmetric Mouth: Yes moist mucous membranes Teeth and gingiva: fair dentition Eyes: General: appearance normal, both eyes and all related structures EOM: EOMs intact bilaterally Neck: Neck: trachea midline and supple Resp: Effo
[2019-09-09] MEDS: THIAMINE HCL 100 MG TABLET PO (08:35)
[2019-09-09] MEDS: NICOTINE (*PBKC) 21 MG PATCH 1 PATCH TRANSDERM (08:36)
[2019-09-09] MEDS: SERTRALINE HCL 50 MG TABLET 100 MG PO (08:36)
[2019-09-09] MEDS: PANTOPRAZOLE 40 MG TABLET PO ×2 (08:36→20:28)
[2019-09-09] MEDS: MULTIVITAMINS THERAPEUTIC TAB (*BKC) 1 TABLET PO (08:36)
--- NOTE | 2019-09-09 18:43 | PC.NURSE ---
This patient, Raul Martin, was transferred to [facility] on 09/09/19 at 1842. Personal belongings sent with patient. Belongings list checked and signed with receiving [ ]. Report given to LESLEY Aranda. Appropriate documentation sent with patient.
--- NOTE | 2019-09-09 18:45 | PC.NURSE ---
This patient, Raul Martin, was received from IMU on 09/09/19 at 1846. Personal belongings list checked and signed. Patient/family oriented to unit policies and routines
[2019-09-10] MEDS: LORAZEPAM INJ 2 MG/ML VIAL 1 MG IV PUSH (02:31)
[2019-09-10] MEDS: SUCRALFATE SUSP 100 MG/ML 10 ML UDC 1000 MG PO (05:47)
[2019-09-10 05:53] VITALS: BP 123/72; PULSE 72; RESP 18; TEMP 36.3; O2SAT 94
[2019-09-10 06:30] LABS: Albumin Level 3.4 g/dL (3.5-5.1); Alkaline Phosphatase 74 U/L (38-126); Aspartate Amino Transferase 620 U/L (17-59); Bilirubin,Total 0.4 mg/dL (0.2-1.3); Blood Urea Nitrogen 14 mg/dL (9-20); Calcium 8.8 mg/dL (8.4-10.2); Carbon Dioxide 28 mmol/L (22-30); Chloride 104 mmol/L (98-107); Estimated CRCL calculation 99 ml/min; Estimated Glomerular Filt Rate > 60; Glucose 126 mg/dL (75-110); Potassium 3.9 mmol/L (3.4-5.0); Sodium 139 mmol/L (137-145)
[2019-09-10 06:31] LABS: Alanine Aminotransferase 1118 U/L (4-50)
--- NOTE | 2019-09-10 08:13 | PM.DS ---
DS: Diagnosis Admitting Diagnosis Admitting Diagnosis: Alcohol dependence with withdrawal, unspecified Discharge Diagnosis (1) Alcohol withdrawal: Qualifiers: Complication of substance-induced condition: uncomplicated Qualified Code(s): F10.230 - Alcohol dependence with withdrawal, uncomplicated Code(s): F10.239 - Alcohol dependence with withdrawal, unspecified Status: Acute Assessment and Plan: The patient will be monitored for symptoms of alcohol withdrawal. His CIWA score when he arrived to the unit was 8. He had received 25 mg of Librium in the ER; this was increased to 50 mg scheduled Q6 hours. CIWA improved today; no confusion, agitation, signs of withdrawal on exam today for me. Wishes to go home Will taper Librium with one 25 mg dose tonight and one tomorrow D/c today (2) Hyponatremia: Code(s): E87.1 - Hypo-osmolality and hyponatremia Status: Acute Assessment and Plan: Na 139 today; improved. Likely due to alcohol abuse. Will repeat CMP in 1 week to trend. Results to PCP and Dr. Fajardo (3) Alcoholic hepatitis: Qualifiers: Ascites presence: unspecified Qualified Code(s): K70.10 - Alcoholic hepatitis without ascites Code(s): K70.10 - Alcoholic hepatitis without ascites Status: Acute Assessment and Plan: With elevated LFTs; AST 620, ALT 1118. Hepatitis panel/HIV serology negative. RUQ US showed hepatic steatosis. Will repeat CMP in [address] Cook and PCP GI has been consulted and appreciate recommendations Follow up with Dr. Cook in 1-2 weeks (4) Chest pain due to GERD: Code(s): R07.9 - Chest pain, unspecified; K21.9 - Gastro-esophageal reflux disease without esophagitis Status: Acute Assessment and Plan: Patient received PPI therapy in the ER. His symptoms improved significantly with a GI cocktail. Will continue Pantoprazole BID as outpatient. Instructed that if he cannot afford this, then try pepcid as replacement Will continue Carafate a.c. and HS. DS: Summary Hospital Course Reason for hospitalization: Alcohol withdrawal; alcohol hepatitis Hospital Course: Patient is a 44 yo M with history of depression and alcoholism who presented to the ER on 09/05 with sudden onset of chest pain and shortness of breath. Patient has had multiple contacts who had upper respiratory symptoms; He was tested negative for flu in the ER. He had been having non-productive cough, fever to 103, and sore throat for about a week. He has also had a burning substernal chest pain that radiates to the neck with occasional nausea/vomiting. He had also had epigastric discomfort off and on for a while. He receieved a GI cocktail in the ER which relieved the discomfrot. He then reported using crystal methamphetamine since 12/2018 and last used on 09/03/2019, He has also been drinking 2 fifths of vodka a day for the last 8 months. In the ER he was noted to have elevated LFTs (AST>>ALT). Please see H&P for further details. Presenting VS: BP 131/88, HR 74, RR 21, temp 97, sat 100% RA Presenting Pertinent labs: PT 15.5, INR 1.3, AST 850 (09/09 620), ALT 360 (09/09 1118), tbili 1.8 (09/09 0.4), Na 129 (09/09 139). Negative tox screen, Hepatitis Panel negative. CBC, coags, CMP otherwise unremarkable. Troponins negative x2. Micro: none Imagin/10 CXR IMPRESSION: 6 mm nodular density overlying the lateral left lower lung; repeat PA chest with nipple markers is recommended. 09/06 CXR IMPRESSION: 1. No acute cardiopulmonary disease. 09/06 RUQ US IMPRESSION: 1. Hepatic steatosis. ECG: Interpretive Statements SINUS BRADYCARDIA ST ELEVATION IN ANT/INF LEADS- PROBABLY EARLY REPOLARIZATION BORDERLINE ECG Patient was admitted to the hospitalist service for further evaluation for a
[2019-09-10] MEDS: THIAMINE HCL 100 MG TABLET PO (08:24)
[2019-09-10] MEDS: SERTRALINE HCL 50 MG TABLET 100 MG PO (08:24)
[2019-09-10] MEDS: CHLORDIAZEPOXIDE 25 MG CAPSULE PO (08:24)
[2019-09-10] MEDS: MULTIVITAMINS THERAPEUTIC TAB (*BKC) 1 TABLET PO (08:24)
[2019-09-10] MEDS: PANTOPRAZOLE 40 MG TABLET PO (08:25)
[2019-09-10] MEDS: NICOTINE (*PBKC) 21 MG PATCH 1 PATCH TRANSDERM (08:25)
== END 2019-09-10 10:37 | disposition home or self-care (01) | DRG 775 ==
LOC: ANHED 17:41 → ANHIMU 18:19 → ANH2MED 09-10 08:27 → ANHIMU 09-14 09:05
PROVIDERS: Internal Medicine; Internal Medicine Gastroenterology; Physician Assistant; Admitting Provider Hospitalist; Emergency Provider Emergency Medicine; PCP Emergency Medicine; Visit Provider Family Medicine
PROC: 0DJ08ZZ Inspection of Upper Intestinal Tract, Via Natural or Artificial Opening Endoscopic (ICD-10-PCS; CPT 43235; principal; 2019-09-08 12:45)
DX: F10.239 Alcohol dependence with withdrawal, unspecified (principal); E87.1 Hypo-osmolality and hyponatremia; K70.10 Alcoholic hepatitis without ascites; F15.90 Other stimulant use, unspecified, uncomplicated; F10.20 Alcohol dependence, uncomplicated; K21.0 Gastro-esophageal reflux disease with esophagitis; R91.1 Solitary pulmonary nodule
CPT/HCPCS: 36415; 71046; 76705; 80053; 80074; 80307; 82248; 83036; 83690; 83735; 84100; 84484; 85025; 85027; 85055; 85610; 85730; 86703; 87081; 87804; 88305; 93005; 94640; 96361; 96374; 96375; 99285; A9270; G0432; J0780; J2060; J2704; J3411; J7030; J7120

== ENCOUNTER 2019-10-05 08:38 | Emergency (ER) | payer MEDICAID, SELFPAY ==
--- NOTE | ~2019-10-05 | CT_ITS ---
EXAMINATION: CT brain wo con EXAM DATE: 10/05/2019 09:04 INDICATION: Altered mental status. TECHNIQUE: Spiral CT of the head was performed without contrast. Axial, coronal and sagittal images were reviewed. The dose-length product (DLP) for this examination was 605.33 mGy-cm. The exposure w as tailored according to patient size, and iterative reconstruction (ASIR) was used as additional dos e reduction technique. There is no prior study for comparison. FINDINGS: There is no acute intraparenchymal hemorrhage. No evidence of intraparenchymal brain mass lesion. No evidence of acute infarction. There is no mass effect or midline shift. The ventricles are normal in size. There are no extra-axial collections. There are no acute calvarial fractures. T he orbits are unremarkable. Soft tissue is unremarkable. The visualized sinuses and mastoid air kel ls are well aerated. IMPRESSION: 1. Normal head CT examination. Reviewed, dictated and finalized at location B.
[2019-10-05 08:37] VITALS: BP 133/83; PULSE 77; RESP 16; TEMP 36.6; O2SAT 96
--- NOTE | 2019-10-05 08:39 | ED.AMS ---
HPI - Altered Mental Status General Chief Complaint: Altered Mental Status Stated Complaint: ams Time Seen by Provider: 10/05/19 08:38 Source: patient, EMS and RN notes reviewed Mode of arrival: EMS Limitations: altered mental status History of Present Illness HPI narrative: Pt is a 44 y/o male who presents to the ED via EMS with c/o altered mental status. According to EMS, the pt was found laying on the ground in front of his house by bystanders earlier this morning. They note that the pt was telling people he fell out of a helicopter, and state that he wasn't making any sense. EMS notes that they administered 2 mg of Narcan while in route to the ED. Pt states that he believes his liver and kidneys are failing after drinking Everclear last night. HPI limited due to the pt's altered mental status. MD complaint: altered mental status Context: unknown Associated symptoms: other (unobtainable) Treatments prior to arrival: other (Narcan 2 mg) Related Data Allergies Allergy/AdvReac Type Severity Reaction Status Date / Time Unable to Assess Allergy Verified 10/05/19 09:03 Review of Systems Review of Systems: ROS unobtainable: Yes unobtainable due to mental status Exam Narrative: Exam Narrative: APPEARANCE: No acute distress, nontoxic, resting in bed smell of EtOH on breath EYES: PERRL HEENT: Normocephalic, atraumatic, OMM RESPIRATORY: No respiratory distress Clear to auscultation bilaterally with no rhonchi wheezing or rales. CARDIOVASCULAR: Regular rate and rhythm without murmurs rubs or gallops. ABDOMINAL: Soft, nontender, nondistended, no rebound or guarding MUSCULOSKELETAl: Moves all extremities. No clubbing, cyanosis or edema. NEURO: Awake and alert. Following commands, refusing to speak, gets up and walks around in room with no difficulty moving all extremities SKIN:: Warm, dry. No rashes lesions or abrasions PSYCHIATRIC: Normal affect/mood, Course Course Emergency Course: Patient is now ANO x3. Following all commands. States he drinks on a daily basis and does not wish to stop drinking or to discuss rehab. Patient has been in the ER for 7 hours she remains awake and alert x3. States that he is ready for discharge. Able to get up and ambulate with no difficulty in the ED on his own patient is awake and alert x3 Discussed with patient results of workup and diagnosis. Discussed need for follow-up with primary care, proper use of medication, and reasons to return to the emergency department. Patient understands and agrees to current treatment plan Reevaluation(s) Reevaluation #1: When asked what his name is, the pt states ?I don?t have a name.? He continues to get out of bed and walk down the hallways. He is verbally told to go back to get in his bed, but refuses. Ativan will be given at this time. Date: 10/05/19 Time: 09:17 Vital Signs Vital signs: Vital Signs Temperature 97.8 F 10/05/19 08:37 Pulse Rate 77 10/05/19 08:37 Respiratory Rate 16 10/05/19 08:37 Blood Pressure 133/83 10/05/19 08:37 Pulse Oximetry 96 10/05/19 08:37 Temperature 97.8 F 10/05/19 08:37 Pulse Rate 79 10/05/19 09:45 Respiratory Rate 16 10/05/19 09:45 Blood Pressure 103/70 10/05/19 09:45 Pulse Oximetry 99 10/05/19 09:45 MDM - Altered Mental Status Lab Data Result diagrams: 10/05/19 08:54 10/05/19 08:54 Labs: Lab Results 10/05/19 10/05/19 10/05/19 Range/Units 08:54 08:54 08:54 WBC 6.9 (4.5-10.0) K/mm3 RBC 4.93 (4.6-6.20) M/mm3 Hgb 15.7 (14.0-18.0) g/dL Hct 46.6 (42.0-52.0) % MCV 94.5 (80-100) fl MCH 31.8 (26-34) pg MCHC 33.7 (32-36) g/dl RDW 15.5 H (11.5-14.5) % Plt Count 243 (150-375) k/mm3 MPV 9.7 (7.4-10.4) fl Immature Gran % (Auto) 0.4 (0-0.5) % Neut % (Auto) 51.4 (45.5-73.1) % Lymph % (Auto) 39.9 (18.3-44.2) % [place] % (Auto) 5.7 (2.6-8.5) % Eos % (Auto) 1.6 (0-4.4) % Baso % (Auto) 1.0 (0.2-1.2
--- NOTE | 2019-10-05 08:40 | ECG_ITS ---
Measurements Intervals [place] Rate: 76 P: 56 CA: 155 QRS: 67 QRSD: 102 T: 65 QT: 382 QTc: 431 Interpretive Statements SINUS RHYTHM ST ELEVATION IN ANTEROLAT/INF LEADS- PROBABLY EARLY REPOLARIZATION BASELINE ARTIFACT- I, II, AVR, AVL BORDERLINE ECG Electronically Signed On 10-05-2019 9:37:28 CDT by Regan Alexandre D.O.
--- NOTE | 2019-10-05 08:45 | PC.NURSE ---
PT NON VERBAL TO STAFF AND DR QUILES WITH ASSESSMENT QUESTIONS. AFTER DR QUILES LEFT THE ROOM THE PT GOT OFF OF STRECTHER AND ATTEMPTED TO LEAVE THE ED. SECURITY CALLED TO ROOM. PT STATED THAT I'M NOT STAYING AND YOU CAN'T MAKE ME! IF YOU TOUCH ME I WILL FUCK YOU UP1 DR QUILES BACK TO SPEAK WITH AND REASSESS PT. PT AGREES TO TESTING AT THIS TIME.
[2019-10-05 09:07] LABS: Basophils Absolute Auto 0.1 K/mm3 (0.0-0.1); Eosinophils Absolute Auto 0.1 K/mm3 (0-0.3); Eosinophils Percent Auto 1.6 % (0-4.4); Hematocrit 46.6 % (42.0-52.0); Hemoglobin 15.7 g/dL (14.0-18.0); Immature Granulocyte Absolute 0.03 K/mm3 (0.00-0.031); Immature Granulocyte Percent A 0.4 % (0-0.5); Lymphocytes Absolute Auto 2.74 K/mm3 (0.9-3.2); Lymphocytes Percent Auto 39.9 % (18.3-44.2); Mean Corpuscular HGB Conc 33.7 g/dl (32-36); Mean Corpuscular Hemoglobin 31.8 pg (26-34); Mean Corpuscular Volume 94.5 fl (80-100); Mean Platelet Volume 9.7 fl (7.4-10.4); Monocytes Absolute Auto 0.4 K/mm3 (0.1-0.6); Monocytes Percent Auto 5.7 % (2.6-8.5); Neutrophils Absolute Auto 3.5 K/mm3 (1.3-6.7); Neutrophils Percent Auto 51.4 % (45.5-73.1); Platelet Count Result 243 k/mm3 (150-375); Red Blood Count 4.93 M/mm3 (4.6-6.20); Red Cell Distribution Width 15.5 % (11.5-14.5); White Blood Count 6.9 K/mm3 (4.5-10.0)
[2019-10-05 09:16] LABS: Ammonia < 9 umol/L (9-30); INR 0.9; Lactic Acid Reflex 2.2 mmol/L (0.7-2.1); Prothrombin Time 11.7 Seconds (11.1-14.7)
[2019-10-05 09:17] LABS: Partial Thromboplastin Time 23.9 SECONDS (22.3-36.8)
[2019-10-05] MEDS: LORAZEPAM INJ 2 MG/ML VIAL 1 MG IV PUSH (09:20)
[2019-10-05 09:36] LABS: Ethanol 331 mg/dL (<10)
[2019-10-05 09:39] LABS: Alanine Aminotransferase 45 U/L (4-50); Albumin Level 4.5 g/dL (3.5-5.1); Alkaline Phosphatase 61 U/L (38-126); Aspartate Amino Transferase 61 U/L (17-59); Bilirubin,Total 0.3 mg/dL (0.2-1.3); Blood Urea Nitrogen 16 mg/dL (9-20); Calcium 9.4 mg/dL (8.4-10.2); Carbon Dioxide 25 mmol/L (22-30); Chloride 106 mmol/L (98-107); Estimated CRCL calculation 102 ml/min; Estimated Glomerular Filt Rate > 60; Glucose 99 mg/dL (75-110); Potassium 4.3 mmol/L (3.4-5.0); Sodium 142 mmol/L (137-145)
[2019-10-05 09:41] LABS: Glucose Point of Care 107 (65-105)
[2019-10-05 09:45] VITALS: BP 103/70; PULSE 79; RESP 16; O2SAT 99
[2019-10-05 10:07] LABS: Creatine Kinase 101 U/L (55-170)
--- NOTE | 2019-10-05 10:15 | PC.NURSE ---
Pt. out of bed, unplugged pump from wall and stated I can't stand being in here I'm going mobile . Security called, Pt. was redirected back to room and cooperated. EDP aware.
[2019-10-05 11:46] LABS: Add Urine Microscopic? NO; Appearance Urine Clear (Clear); Bilirubin Urine Negative (Negative); Blood Urine Negative (Negative); Color Urine Yellow (Yellow); Glucose Urine UA Negative (Negative); Ketones Urine Negative (Negative); Leukocyte Esterase Ur Negative LEU/UL (Negative); Nitrate Urine Negative (Negative); Protein Urine Negative (Negative); Specific Grav Ur 1.019 (1.001-1.035); Urobilinogen Urine Negative mg/dL (<2.0)
[2019-10-05 12:01] LABS: Amphetamine Screen Urine Negative (Negative); Barbiturate Screen Urine Negative (Negative); Benzodiazepines Screen Urine Positive (Negative); Cannabinoid Screen Urine Negative (Negative); Cocaine Screen Urine Negative (Negative); Methadone Screen Urine Negative (Negative); Opiate Screen Urine Negative (Negative); Phencyclidine Screen Urine Negative (Negative)
[2019-10-05 12:02] LABS: Reflex Lactic Acid Yes or No Add Lactic
--- NOTE | 2019-10-05 12:11 | PC.NURSE ---
Dr. Cano ordered a lactic draw from pt, pt has just recently fallen asleep. Dr. Cano stated to not wake patient up and hold on drawing lactic. Will await further orders.
--- NOTE | 2019-10-05 15:45 | PC.NURSE ---
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 pt states he does not have any family or friends to call for a ride. Pt informed that he was still legally and medically intoxicated and needed to get a ride home. and charge nurse aware of pt unwillingness to cooperate with staying in room and requests not to swear.
--- NOTE | 2019-10-05 17:05 | PCCCNOTE ---
Per request of ED charge nurse a cab voucher given for pt to return home. Pt in ED for 8 hrs and still could not find ride home.
== END 2019-10-05 16:59 | disposition home or self-care (01) ==
PROVIDERS: Emergency Provider Emergency Medicine
DX: F10.129 Alcohol abuse with intoxication, unspecified (principal); Y90.8 Blood alcohol level of 240 mg/100 ml or more
CPT/HCPCS: 36415; 70450; 80053; 80307; 81003; 82140; 82550; 82948; 83605; 85025; 85610; 85730; 93005; 96365; 96366; 96375; 99284; J2060; J3411; J3475; J7030

== ENCOUNTER 2019-12-02 22:58 | Emergency (ER) | payer OTHER, SELFPAY ==
[2019-12-02 22:59] VITALS: BP 138/96; PULSE 106; RESP 18; TEMP 37.3; O2SAT 95
--- NOTE | 2019-12-02 23:09 | PC.NURSE ---
Pt keeps attempting to get out of bed. Charge aware.
[2019-12-02] MEDS: HALOPERIDOL LACTATE 5 MG/ML VIAL IM (23:26)
[2019-12-02 23:28] LABS: Basophils Absolute Auto 0.1 K/mm3 (0.0-0.1); Basophils Percent Auto 0.9 % (0.2-1.2); Eosinophils Absolute Auto 0.1 K/mm3 (0-0.3); Eosinophils Percent Auto 1.6 % (0-4.4); Hematocrit 46.7 % (42.0-52.0); Hemoglobin 16.1 g/dL (14.0-18.0); Immature Granulocyte Absolute 0.01 K/mm3 (0.00-0.031); Immature Granulocyte Percent A 0.1 % (0-0.5); Lymphocytes Percent Auto 43.2 % (18.3-44.2); Mean Corpuscular HGB Conc 34.5 g/dl (32-36); Mean Corpuscular Hemoglobin 33.1 pg (26-34); Mean Corpuscular Volume 96.1 fl (80-100); Mean Platelet Volume 9.7 fl (7.4-10.4); Monocytes Absolute Auto 0.5 K/mm3 (0.1-0.6); Monocytes Percent Auto 7.1 % (2.6-8.5); Neutrophils Absolute Auto 3.2 K/mm3 (1.3-6.7); Neutrophils Percent Auto 47.1 % (45.5-73.1); Platelet Count Result 217 k/mm3 (150-375); Red Blood Count 4.86 M/mm3 (4.6-6.20); Red Cell Distribution Width 13.6 % (11.5-14.5); White Blood Count 6.7 K/mm3 (4.5-10.0)
[2019-12-02 23:33] LABS: Alanine Aminotransferase 48 U/L (4-50); Albumin Level 4.3 g/dL (3.5-5.1); Alkaline Phosphatase 59 U/L (38-126); Aspartate Amino Transferase 68 U/L (17-59); Bilirubin,Total 0.2 mg/dL (0.2-1.3); Blood Urea Nitrogen 14 mg/dL (9-20); Calcium 9.6 mg/dL (8.4-10.2); Carbon Dioxide 25 mmol/L (22-30); Chloride 106 mmol/L (98-107); Estimated Glomerular Filt Rate > 60; Glucose 111 mg/dL (75-110); Lipase 197 U/L (23-300); Sodium 142 mmol/L (137-145)
--- NOTE | 2019-12-02 23:51 | PC.NURSE ---
Called lab to add on Ethanol level
[2019-12-03 00:21] VITALS: PULSE 96; RESP 18; O2SAT 93
[2019-12-03 00:26] LABS: Add Urine Microscopic? NO; Appearance Urine Clear (Clear); Bilirubin Urine Negative (Negative); Blood Urine Negative (Negative); Color Urine Straw (Yellow); Glucose Urine UA Negative (Negative); Ketones Urine Negative (Negative); Leukocyte Esterase Ur Negative LEU/UL (Negative); Nitrate Urine Negative (Negative); Protein Urine Negative (Negative); Specific Grav Ur 1.011 (1.001-1.035); Urobilinogen Urine Negative mg/dL (<2.0)
[2019-12-03 00:51] LABS: Ethanol 388 mg/dL (<10)
--- NOTE | 2019-12-03 02:08 | ED.GENADULT ---
HPI - General Adult General Chief complaint: Abdominal Pain Stated complaint: ABD PAIN/ ETOH Time Seen by Provider: 12/02/19 23:28 History of Present Illness HPI narrative: Patient presents via EMS for abdominal pain. He called EMS for the abdominal pain, but it was apparent he was quite intoxicated, and he became difficult. Here his behavior could not be controlled by redirection, and he was given a Haldol shot. He seemed quite intoxicated, and kept saying that he had cirrhosis and had abdominal pain. Related Data Home Medications Medication Instructions Recorded Confirmed sertraline [Zoloft] 100 mg PO DAILY 09/06/19 09/06/19 Allergies Allergy/AdvReac Type Severity Reaction Status Date / Time ibuprofen Allergy Unknown Anaphylaxis Verified 10/28/19 14:42 Review of Systems Review of Systems: Narrative: Review of systems is limited by the patient's alcohol intoxication. [facility] Past Medical History Medical History Alcohol abuse Depression Drug abuse Flu-like symptoms Methamphetamine abuse Nausea and vomiting in adult Non-cardiac chest pain Seizures Likely from withdrawl Smoker Thrombocytopenia Surgical History Surgical History History of tonsillectomy and adenoidectomy Injury of left forearm Repair of muscles, tendons, and ligaments in the left forearm due to trauma Right arm fracture Right humerus fracture with ORIF 2002 Social History Social History Social History: Primary care physician: Dr. Davi Ji Code status: Full code Smoking packs per day: 2 Smoking cigarettes per day: 40.0 Years smoked: 20 Smoking pack-years: 40.00 Smoking status: Current every day smoker Tobacco type: cigarettes Additional smoking assessment comments: 1-2 packs per day since he was in his early 20s. Alcohol intake: current Drinks per week: 28 Substance use: current Substance use type: methamphetamine Other substance usage details: Ice and alcohol daily since december Last use: ICE crystal methamphetamine Additional living arrangements comments: Patient lives alone. His 15-year-old son is living with the patient's parents. 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 Gender identity (if verbalized by the patient): Male Spiritual care concerns: No Agree to blood products: Yes Exam Narrative: Exam Narrative: GENERAL: Well-appearing, well-nourished, and in no acute distress. He has no assured on. HEAD: Normocephalic, atraumatic. EYES: PERRLA and EOMI. ENT: Nares clear, no rhinorrhea or epistaxis. Mucous membranes moist. NECK: Supple. CHEST: Clear to auscultation. No respiratory distress. HEART: Regular rate and rhythm. No murmur heard. Normal peripheral pulses. ABDOMEN: Soft, nontender, nondistended, normal active bowel sounds. EXTREMITIES: Normal range of motion. No edema. SKIN: Warm, dry, no rash. NEURO: No focal deficits. Alert and oriented x3. PSYCH: Initially difficult, and cooperative. Course Reevaluation(s) Reevaluation #1: Went in to wake up the patient and offer him coffee. He says he has no one to drive him home. He says he does not have a car. He says he does not have money to take a cab. Date: 12/03/19 Time: 07:20 Vital Signs Vital signs: Vital Signs Temperature 99.1 F 12/02/19 22:59 Pulse Rate 106 H 12/02/19 22:59 Respiratory Rate 18 12/02/19 22:59 Blood Pressure 138/96 H 12/02/19 22:59 Pulse Oximetry 95 12/02/19 22:59 Temperature 99.1 F 12/02/19 22:59 Pulse Rate 92 12/03/19 06:52 Respiratory Rate 18 12/03/19 06:52 Blood Pressure 121/87 12/03/19 06:52 Pulse Oximetry 98 12/03/19 06:52 Medical Decision Making Vital Signs Vital Signs: Vital Signs Temperature 99.1 F 12/02/19
[2019-12-03 03:13] VITALS: BP 112/60; PULSE 98; RESP 18; O2SAT 100
[2019-12-03 06:52] VITALS: BP 121/87; PULSE 92; RESP 18; O2SAT 98
--- NOTE | 2019-12-03 06:53 | PC.NURSE ---
Meal order placed at this time. Pt sleeping in bed.
[2019-12-03 07:35] VITALS: BP 120/71; PULSE 90; RESP 14; O2SAT 99
== END 2019-12-03 07:45 | disposition home or self-care (01) ==
PROVIDERS: Emergency Provider Emergency Medicine; PCP Emergency Medicine
DX: F10.129 Alcohol abuse with intoxication, unspecified (principal); Y90.8 Blood alcohol level of 240 mg/100 ml or more; F32.9 Major depressive disorder, single episode, unspecified; F17.210 Nicotine dependence, cigarettes, uncomplicated
CPT/HCPCS: 36415; 80053; 80307; 81003; 83690; 85025; 96372; 99283; J1630

== ENCOUNTER 2020-01-07 01:43 | Emergency (ER) | payer OTHER, SELFPAY ==
--- NOTE | 2020-01-07 01:45 | ED.AMS ---
HPI - Altered Mental Status General Chief Complaint: Psychiatric Symptoms <Monica Rasmussen MD - Last Filed: 01/08/20 02:04> Stated Complaint: psych, etoh <Monica Rasmussen MD - Last Filed: 01/08/20 02:04> Time Seen by Provider: 01/07/20 01:44 <Monica Rasmussen MD - Last Filed: 01/08/20 02:04> History of Present Illness HPI narrative: Patient presents via EMS, for alcohol intoxication. He just keeps saying, I have 2 men in the field . He does give direct eye contact but smells very strongly of alcohol. <Monica Rasmussen MD - Last Filed: 01/08/20 02:04> MD complaint: altered mental status, confusion and intoxication <Monica Rasmussen MD - Last Filed: 01/08/20 02:04> Related Data Home Medications: Home Medications Medication Instructions Recorded Confirmed sertraline [Zoloft] 100 mg PO DAILY 09/06/19 09/06/19 <Monica Rasmussen MD - Last Filed: 01/08/20 02:04> Allergies/Adverse Reactions: Allergies Allergy/AdvReac Type Severity Reaction Status Date / Time ibuprofen Allergy Unknown Anaphylaxis Verified 10/28/19 14:42 <Monica Rasmussen MD - Last Filed: 01/08/20 02:04> Review of Systems Review of Systems: Narrative: Unable to obtain a review of systems upon presentation because of the alcohol intoxication. <Monica Rasmussen MD - Last Filed: 01/08/20 02:04> [facility] Social History Social History: Social History Social History: Primary care physician: Dr. Davi Ji Code status: Full code Smoking packs per day: 2 Smoking cigarettes per day: 40.0 Years smoked: 20 Smoking pack-years: 40.00 Smoking status: Current every day smoker Tobacco type: cigarettes Additional smoking assessment comments: 1-2 packs per day since he was in his early 20s. Alcohol intake: current Drinks per week: 28 Substance use: current Substance use type: methamphetamine Other substance usage details: Ice and alcohol daily since december Last use: ICE crystal methamphetamine Additional living arrangements comments: Patient lives alone. His 15-year-old son is living with the patient's parents. 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 Gender identity (if verbalized by the patient): Male Spiritual care concerns: No Agree to blood products: Yes <Monica Rasmussen MD - Last Filed: 01/08/20 02:04> Exam Narrative: Exam Narrative: GENERAL: Well-appearing, well-nourished, and in no acute distress. HEAD: Normocephalic, atraumatic. EYES: PERRLA and EOMI. ENT: Nares clear, no rhinorrhea or epistaxis. Mucous membranes moist. NECK: Supple. CHEST: Clear to auscultation. No respiratory distress. HEART: Regular rate and rhythm. No murmur heard. Normal peripheral pulses. ABDOMEN: Soft, nontender, nondistended, normal active bowel sounds. EXTREMITIES: Normal range of motion. No edema. SKIN: Warm, dry, no rash. NEURO: No focal deficits. Alert. PSYCH: . <Monica Rasmussen MD - Last Filed: 01/08/20 02:04> Course Course Emergency Course: Patient resting comfortably. He is clinically sober. Awake alert and oriented x3. No SI or HI. No hallucinations. He is starting to become little bit tremulous. Reports when he does not drink alcohol he does get shaky. Denies withdrawal seizures. Offered to have the patient stay and receive medications to help treat alcohol withdrawal. He is declining this as he would like to go home where his dogs are located. <Calin Myers MD - Last Filed: 01/07/20 15:20> Vital Signs Vital signs: Vital Signs Temperature 98.1 F 01/07/20 01:46 Pulse Rate 94 01/07/20 01:46 Respiratory Rate 18 01/07/20 01:46 Blood Pressure 124/89 01/07/20 01:46 Pulse Oximetry 100 01/07/20 01:46 Temperature 98.1 F 01/07/20 01:46 Pulse Rate 92 01/07/20 10:40 Respiratory Rate 18 01/07/20 10:40 Bloo
[2020-01-07 01:46] VITALS: BP 124/89; PULSE 94; RESP 18; TEMP 36.7; O2SAT 100
[2020-01-07] MEDS: HALOPERIDOL LACTATE 5 MG/ML VIAL IM (01:55)
[2020-01-07 02:15] LABS: Basophils Absolute Auto 0.1 K/mm3 (0.0-0.1); Basophils Percent Auto 1.1 % (0.2-1.2); Eosinophils Absolute Auto 0.1 K/mm3 (0-0.3); Eosinophils Percent Auto 0.8 % (0-4.4); Hematocrit 50.4 % (42.0-52.0); Hemoglobin 17.1 g/dL (14.0-18.0); Immature Granulocyte Absolute 0.01 K/mm3 (0.00-0.031); Immature Granulocyte Percent A 0.2 % (0-0.5); Lymphocytes Absolute Auto 2.76 K/mm3 (0.9-3.2); Lymphocytes Percent Auto 44.1 % (18.3-44.2); Mean Corpuscular HGB Conc 33.9 g/dl (32-36); Mean Corpuscular Hemoglobin 32.5 pg (26-34); Mean Corpuscular Volume 95.8 fl (80-100); Mean Platelet Volume 9.6 fl (7.4-10.4); Monocytes Absolute Auto 0.4 K/mm3 (0.1-0.6); Neutrophils Absolute Auto 2.9 K/mm3 (1.3-6.7); Neutrophils Percent Auto 46.8 % (45.5-73.1); Platelet Count Result 234 k/mm3 (150-375); Red Blood Count 5.26 M/mm3 (4.6-6.20); Red Cell Distribution Width 13.4 % (11.5-14.5); White Blood Count 6.3 K/mm3 (4.5-10.0)
--- NOTE | 2020-01-07 02:19 | PC.NURSE ---
Pt refusing to sit or lay down. Pt screaming in the room.
[2020-01-07 02:21] LABS: Alanine Aminotransferase 94 U/L (4-50); Albumin Level 4.7 g/dL (3.5-5.1); Alkaline Phosphatase 65 U/L (38-126); Aspartate Amino Transferase 155 U/L (17-59); Bilirubin,Total 0.4 mg/dL (0.2-1.3); Blood Urea Nitrogen 15 mg/dL (9-20); Calcium 8.9 mg/dL (8.4-10.2); Carbon Dioxide 24 mmol/L (22-30); Chloride 105 mmol/L (98-107); Estimated Glomerular Filt Rate > 60; Glucose 102 mg/dL (75-110); Potassium 4.1 mmol/L (3.4-5.0); Sodium 140 mmol/L (137-145)
[2020-01-07 02:52] LABS: Thyroid Stimulating Hormone 0.665 uIU/mL (0.465-4.680)
[2020-01-07 02:56] LABS: Ethanol 362 mg/dL (<10)
[2020-01-07 06:47] VITALS: BP 125/92; PULSE 102; RESP 18; O2SAT 96
--- NOTE | 2020-01-07 08:03 | PC.NURSE ---
Pt belligerent and cursing at staff because he wants to go home. Explained the process to pt of crisis evaluating after his alcohol level is normal.
--- NOTE | 2020-01-07 10:38 | PC.NURSE ---
Refuses IV. States if you don't take this fucking IV out I will take it the fuck out . IV removed. ERP aware.
[2020-01-07 10:40] VITALS: BP 151/93; PULSE 92; RESP 18; O2SAT 99
[2020-01-07 10:48] LABS: Amphetamine Screen Urine Negative (Negative); Barbiturate Screen Urine Negative (Negative); Benzodiazepines Screen Urine Negative (Negative); Cannabinoid Screen Urine Negative (Negative); Cocaine Screen Urine Negative (Negative); Methadone Screen Urine Negative (Negative); Opiate Screen Urine Negative (Negative); Phencyclidine Screen Urine Negative (Negative)
[2020-01-07 11:11] LABS: Add Urine Microscopic? YES; Appearance Urine Clear (Clear); Bilirubin Urine Negative (Negative); Blood Urine Negative (Negative); Color Urine Yellow (Yellow); Glucose Urine UA Negative (Negative); Ketones Urine Trace mg/dL (Negative); Leukocyte Esterase Ur Negative LEU/UL (Negative); Mucus Urine Few /lpf; Nitrate Urine Negative (Negative); Protein Urine 1+ mg/dL (Negative); RBC Urine 0-2 /hpf (0-2); Specific Grav Ur 1.029 (1.001-1.035); Urobilinogen Urine Negative mg/dL (<2.0); WBC Urine 0-3 /hpf
[2020-01-07 14:27] LABS: Ethanol 14 mg/dL (<10)
== END 2020-01-07 15:27 | disposition home or self-care (01) ==
PROVIDERS: Emergency Medicine; Emergency Provider Emergency Medicine; PCP Emergency Medicine
DX: F10.129 Alcohol abuse with intoxication, unspecified (principal); F43.12 Post-traumatic stress disorder, chronic; R94.5 Abnormal results of liver function studies; F17.210 Nicotine dependence, cigarettes, uncomplicated; Y90.8 Blood alcohol level of 240 mg/100 ml or more
CPT/HCPCS: 36415; 80053; 80307; 81001; 84443; 85025; 96365; 96366; 96372; 99284; J1630; J3411; J3475; J7121

== ENCOUNTER 2020-06-29 14:12 | Emergency (ER) | payer OTHER, SELFPAY ==
--- NOTE | ~2020-06-29 | XR_ITS ---
EXAMINATION: XR foot RT min 3V DATE: 06/29/2020 14:48 INDICATION: Right foot pain TECHNIQUE: Dorsoplantar, lateral, and 2 oblique views of the right foot were obtained. COMPARISON: 05/17/2018 FINDINGS: There is an age-indeterminate fracture of the fourth metatarsal. Healed fractures of the se cond, third, and fifth metatarsals are present. The joint spaces are normal. The soft tissues are unr emarkable. IMPRESSION: 1. Age-indeterminate fracture of the fourth metatarsal. Reviewed, dictated and finalized at location A. RAL DEVELOPER
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
--- NOTE | ~2020-06-29 | XR_ITS ---
EXAMINATION: XR chest 2V DATE: 06/29/2020 14:48 INDICATION: Cough TECHNIQUE: PA and lateral views of the chest are obtained. COMPARISON: 09/07/2019 FINDINGS: The lungs are free of acute opacities. There is no pleural effusion or pneumothorax. The ca rdiomediastinal silhouette is normal. The visualized bones and soft tissues are unremarkable. IMPRESSION: 1. No acute cardiopulmonary abnormality. Reviewed, dictated and finalized at location A. ER DEVELOPMENT MANAGER
[2020-06-29 14:14] VITALS: BP 128/94; PULSE 91; RESP 16; TEMP 36.8; O2SAT 99
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
== END 2020-06-29 15:45 ==
PROVIDERS: Emergency Provider Emergency Medicine; PCP Emergency Medicine
DX: M25.512 Pain in left shoulder (principal); F32.9 Major depressive disorder, single episode, unspecified; F17.210 Nicotine dependence, cigarettes, uncomplicated; R93.6 Abnormal findings on diagnostic imaging of limbs
CPT/HCPCS: 71046; 73030; 73630; 99284

== ENCOUNTER 2022-03-16 17:52 | Emergency (ER) | payer OTHER, SELFPAY ==
[2022-03-16 17:57] VITALS: BP 132/77; PULSE 94; RESP 18; TEMP 36.8; O2SAT 95
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
== END 2022-03-16 18:52 | disposition left against medical advice (07) ==
PROVIDERS: Emergency Provider Nurse Practitioner Family; PCP Emergency Medicine
DX: S21.132A Puncture wound without foreign body of left front wall of thorax without penetration into thoracic cavity, initial encounter (principal); S81.832A Puncture wound without foreign body, left lower leg, initial encounter; S41.132A Puncture wound without foreign body of left upper arm, initial encounter; S31.131A Puncture wound of abdominal wall without foreign body, left upper quadrant without penetration into peritoneal cavity, initial encounter; S41.032A Puncture wound without foreign body of left shoulder, initial encounter; F32.A Depression, unspecified; F17.210 Nicotine dependence, cigarettes, uncomplicated; F10.10 Alcohol abuse, uncomplicated; F15.10 Other stimulant abuse, uncomplicated; X95.01XA Assault by airgun discharge, initial encounter
CPT/HCPCS: 99281; 99284

== ENCOUNTER 2023-11-03 15:18 | Emergency (ER) | payer OTHER, MEDICAID, SELFPAY ==
[2023-11-03 15:21] VITALS: BP 130/85; PULSE 98; RESP 18; TEMP 36.4; O2SAT 94
[2023-11-03 15:27] VITALS: BP 130/85; O2SAT 94
[2023-11-03 16:51] LABS: Basophils Absolute Auto 0.1 K/mm3 (0.0-0.1); Basophils Percent Auto 0.6 % (0.2-1.2); Eosinophils Percent Auto 0.3 % (0-4.4); Hematocrit 41.6 % (42.0-52.0); Hemoglobin 14.1 g/dL (14.0-18.0); Immature Granulocyte Absolute 0.03 K/mm3 (0.00-0.031); Immature Granulocyte Percent A 0.3 % (0-0.5); Lymphocytes Absolute Auto 2.28 K/mm3 (0.9-3.2); Lymphocytes Percent Auto 26.5 % (18.3-44.2); Mean Corpuscular HGB Conc 33.9 g/dl (32-36); Mean Corpuscular Hemoglobin 30.8 pg (26-34); Mean Corpuscular Volume 90.8 fl (80-100); Mean Platelet Volume 9.3 fl (7.4-10.4); Monocytes Absolute Auto 0.6 K/mm3 (0.1-0.6); Monocytes Percent Auto 7.2 % (2.6-8.5); Neutrophils Absolute Auto 5.6 K/mm3 (1.3-6.7); Neutrophils Percent Auto 65.1 % (45.5-73.1); Platelet Count Result 277 k/mm3 (150-375); Red Blood Count 4.58 M/mm3 (4.6-6.20); Red Cell Distribution Width 14.7 % (11.5-14.5); White Blood Count 8.6 K/mm3 (4.5-10.0)
[2023-11-03] MEDS: ONDANSETRON HCL ODT 4 MG TABLET PO (16:52)
[2023-11-03] MEDS: NICOTINE (*PBKC) 14 MG PATCH 1 PATCH TRANSDERM (16:52)
--- NOTE | 2023-11-03 16:56 | ED.ALCOHOL ---
HPI - Alcohol General Chief Complaint: Alcohol Stated Complaint: ETOH Time Seen by Provider: 11/03/23 15:43 History of Present Illness HPI narrative: 48-year-old male presents to the emergency department for evaluation of alcohol intoxication. Patient was at [facility] and drinking alcohol. Please recall the patient was brought to the emergency department by EMS. Patient reportedly ate to fist fulls of grass and was complaining of abdominal pain. Upon arrival emergency department patient is still stating he has some right upper quadrant abdominal pain. Related Data Home Medications Medication Instructions Recorded Confirmed sertraline 100 mg tablet (Zoloft) 100 mg PO DAILY 09/06/19 09/06/19 Allergies Allergy/AdvReac Type Severity Reaction Status Date / Time ibuprofen Allergy Unknown Anaphylaxis Verified 10/28/19 14:42 Review of Systems Review of Systems: All systems reviewed & are unremarkable except as noted in HPI and below PMFSH Past Medical History Medical History (Updated 11/04/23 @ 00:01 by Jumana Spear) Alcohol abuse Depression Drug abuse Flu-like symptoms Methamphetamine abuse Nausea and vomiting in adult Non-cardiac chest pain Seizures Likely from withdrawl Smoker Thrombocytopenia Surgical History Surgical History History of tonsillectomy and adenoidectomy Injury of left forearm Repair of muscles, tendons, and ligaments in the left forearm due to trauma Right arm fracture Right humerus fracture with ORIF 2002 Family History Family History Father , Age 68 Pancreatic cancer Hypertension Mother Family history of arthritis Sibling Alcoholism in remission Brother who is 42 years old Other Family history of malignant neoplasm Social History Social History Social History: Primary care physician: Dr. Davi Ji Code status: Full code Smoking packs per day: 2 Smoking cigarettes per day: 40.0 Years smoked: 20 Smoking pack-years: 40.00 Smoking status: Current every day smoker Tobacco type: cigarettes Additional smoking assessment comments: 1-2 packs per day since he was in his early 20s. Alcohol intake: current Drinks per week: 28 Alcohol use details: Two 5th of vodka daily. Substance use: current Substance use type: methamphetamine Other substance usage details: Ice and alcohol daily since december Last use: ICE crystal methamphetamine Living arrangements: alone Additional living arrangements comments: Patient lives alone. His 15-year-old son is living with the patient's parents. 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 Gender identity (if verbalized by the patient): Male Spiritual care concerns: No Agree to blood products: Yes Exam Narrative: APPEARANCE: Well-appearing but intoxicated HEAD: normocephalic, atraumatic. EYES: PERRLA/EOMI, conjunctivae clear. NOSE: Normal no drainage EARS:TMS clear with good light reflex. THROAT: Pharynx clear, no exudate. NECK: Supple. No adenopathy, no masses. RESPIRATORY: Airway patent, respirations nonlabored. Clear to auscultation bilaterally, no rales, rhonchi, wheezing. CARDIOVASCULAR: Regular rate and rhythm without murmurs rubs or gallops. ABDOMINAL: Soft, nontender, nondistended, normal bowel sounds MUSCULOSKELETAL: Moves all extremities. Strength/ROM intact, No edema, No calf tenderness. NEURO: Alert. Cranial nerves II through XII intact. Good gait. Good coordination SKIN: Warm, dry. Normal Color Course Vital Signs Vital signs: Vital Signs Temperature 97.6 F 11/03/23 15:21 Pulse Rate 98 11/03/23 15:21 Respiratory Rate 18 11/03/23 15:21 Blood Pressure 130/85 11/03/23
[2023-11-03 17:07] LABS: Alanine Aminotransferase 29 U/L (6-50); Albumin Level 4.6 g/dL (3.5-5.1); Alkaline Phosphatase 47 U/L (38-126); Anion Gap 12 mmol/L (4-12); Aspartate Amino Transferase 56 U/L (17-59); Bilirubin,Total 0.8 mg/dL (0.2-1.3); Blood Urea Nitrogen 11 mg/dL (9-20); Calcium 9.5 mg/dL (8.4-10.2); Carbon Dioxide 23 mmol/L (22-30); Chloride 106 mmol/L (98-107); Estimated CRCL calculation 103 ml/min; Estimated Glomerular Filt Rate > 60; Glucose 138 mg/dL (65-110); Lipase 73 U/L (23-300); Potassium 3.4 mmol/L (3.4-5.0); Sodium 141 mmol/L (137-145)
--- NOTE | 2023-11-03 18:38 | PC.NURSE ---
Pts friend, Angel Caity, phone number [phone], states he will pick the pt up when he gets off of work in approx. 4 hours.
--- NOTE | 2023-11-03 19:14 | PC.NURSE ---
Assumed care of pt from LESLEY Wesley at this time. pt resting in bed.
== END 2023-11-03 19:35 | disposition home or self-care (01) ==
PROVIDERS: Emergency Provider Emergency Medicine; PCP Emergency Medicine
DX: F10.129 Alcohol abuse with intoxication, unspecified (principal); Y90.9 Presence of alcohol in blood, level not specified; F32.A Depression, unspecified; F17.210 Nicotine dependence, cigarettes, uncomplicated
CPT/HCPCS: 36415; 80053; 83690; 85025; 99283; A9270